=== PATIENT | female | born 1970 | race Two or more races ===

== ENCOUNTER 2022-06-01 16:47 | Emergency (ER) | payer OTHER ==
[~2022-06-01] VITALS: Ht 170.2 cm; Wt 54.0 kg
== END 2022-06-01 20:52 | disposition home or self-care (01) ==
LOC: ER 16:47
DX: N30.80 Other cystitis without hematuria (principal); B96.20 Unspecified Escherichia coli [E. coli] as the cause of diseases classified elsewhere